=== PATIENT | male | born 1990 | race Asian ===

== ENCOUNTER 2016-12-30 17:42 | Emergency (ER) | payer OTHER ==
[~2016-12-30] VITALS: Ht 160 cm; Wt 59.0 kg
[2016-12-30 17:53] VITALS: BP 113/71; PULSE 68; RESP 18; TEMP 97.5; O2SAT 94
[2016-12-30] MEDS ORDERED: ACETAMINOPHEN/CODEINE 300 MG/30 MG TAB PO ONE (18:15)
[2016-12-30] MEDS ORDERED: VITATAB11 PO (18:16)
[2016-12-30] MEDS ORDERED: CLAR10CA3 PO (18:16)
[2016-12-30] MEDS ORDERED: MIRA3350 PO (18:16)
[2016-12-30] MEDS ORDERED: ZANT150T2 PO (18:16)
[2016-12-30] MEDS ORDERED: CALC12502 PO (18:16)
--- NOTE | 2016-12-30 18:19 | PD ---
HPI Chief Complaint: Injury Time Seen by Provider: 18:10 Travel History International Travel<30 days: No Contact w/Intl Traveler<30days: No Traveled to known affect area: No History of Present Illness HPI 26-year-old male history of developmental delay, from [place], presents with family for evaluation of right knee injury. [place] and he twisted his right knee. According to the parents his patella was deviated laterally and they reduced it immediately on scene. Now has swelling to the right knee and he has been crying. He is nonverbal so he is not able to verbalize his pain. He received 2 Advil prior to arrival. No other complaints at this time. PFSH Past Medical History Developmental Delay: Yes (MR) Psychiatric: Yes Tetanus Vaccination: < 5 Years Influenza Vaccination: Yes Past Surgical History Genitourinary Surgery: Yes (bladder reconstruction) Tonsillectomy: Yes (T & A) Other Surgery: Yes (g-tube in place) Social History Alcohol Use: No Tobacco Use: No Substance Use: No Allergies-Medications (Allergen,Severity, Reaction): Coded Allergies: cefaclor (Verified Allergy, Severe, 12/30/16) amoxicillin (Verified Allergy, Intermediate, Diarrhea, 12/30/16) clavulanic acid (Verified Allergy, Intermediate, Diarrhea, 12/30/16) clarithromycin (Verified Allergy, Mild, raash, 12/30/16) Reported Meds & Prescriptions Reported Meds & Active Scripts Active Reported Miralax Powder (Polyethylene Glycol 3350 Powder) 17 Gm Powd 17 Gm PO DAILY Mix and dissolve one measuring cap-ful (17 grams) in water or juice. Claritin (Loratadine) 10 Mg Cap 10 Mg PO DAILY Zantac (Ranitidine HCl) 150 Mg Tab 150 Mg PO DAILY Vitamin B Complex (B-Complex Vitamins) 1 Tab 1 Tab PO DAILY Calcium (Oyster Shell) 500 Mg Calcium (1250 Mg) Tab 1 Tab PO DAILY Review of Systems ROS Limitations: Poor Historian Except as stated in HPI: all other systems reviewed are Neg Physical Exam Exam Limitations: Poor Historian Narrative GENERAL: Well-developed well-nourished male in no acute distress sitting upright in hospital bed SKIN: Warm and dry. HEAD: Atraumatic. Normocephalic. EYES: Pupils equal and round. No scleral icterus. No injection or drainage. CARDIOVASCULAR: Regular rate and rhythm. No murmur appreciated. RESPIRATORY: No accessory muscle use. Clear to auscultation. Breath sounds equal bilaterally. GASTROINTESTINAL: Abdomen soft, non-tender, nondistended. Hepatic and splenic margins not palpable. MUSCULOSKELETAL: Right knee effusion is present. The patient is able to flex and extend his right knee area distal pulses are intact. NEUROLOGICAL: Awake and alert. No obvious cranial nerve deficits. Data Data Last Documented VS Vital Signs Date Time Temp Pulse Resp B/P (MAP) Pulse Ox O2 Delivery O2 Flow Rate FiO2 12/30/16 17:53 97.5 68 18 113/71 (85) 94 Room Air Orders Orders Acetamin-Codeine 300-30 Mg (Tylenol-Code (12/30/16 18:15) Knee, Complete (4vws) (12/30/16 ) Ed Discharge Order (12/30/16 19:32) [facility] Medical Decision Making Medical Screen Exam Complete: Yes Emergency Medical Condition: Yes Medical Record Reviewed: Yes Differential Diagnosis Right knee patellar dislocation status post reduction versus ligamentous disruption versus patellar tendon rupture versus fracture Narrative Course The patient will be given Tylenol with Codeine. X-ray imaging will be obtained. X-ray imaging reveals no acute abnormalities. Clinically the patellar tendon dislocation appears reduced. He is being discharged with a knee immobilizer. Diagnosis Primary Impression: Patellar dislocation Qualified Codes: S83.004A - Unspecified dislocation of right patella, initial encounter Additional Instructions: Knee immobilizer. Ice pack several times a day 20 minutes at a time. Follow- up with primary care physician in 2 weeks. If right knee pain persists outpatient MRI imaging would be warranted. Return for any emergent medical conditions. Med/Other Pt SpecificInfo: Orthopedic Instructions Disposition: 01 DISCHARGE HOME Condition: Stable Morgan Krishna Dec 30, 2016 18:19
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
== END 2016-12-30 19:50 | disposition home or self-care (01) ==
LOC: PHEFT 17:42
DX: S83.004A Unspecified dislocation of right patella, initial encounter (principal); R62.50 Unspecified lack of expected normal physiological development in childhood; X50.1XXA Overexertion from prolonged static or awkward postures, initial encounter; Y93.11 Activity, swimming; Y92.832 Beach as the place of occurrence of the external cause
CPT/HCPCS: 73564; 99283